=== PATIENT | male | born 1970 | race American Indian/Alaskan Native ===

== ENCOUNTER 2017-01-28 02:18 | Emergency (ER) | payer OTHER ==
[2017-01-28 02:18] VITALS: BMI 24.7
[2017-01-28 02:38] VITALS: TEMP 97.5
[2017-01-28] MEDS ORDERED: Sodium Chloride 0.9% 1,000 ML IV STA (02:43)
[2017-01-28 03:45] LABS: BASO # 0.1 K/uL (0.0-0.2); BASO % 0.8 % (0.0-2.0); EOS # 0.1 K/uL (0.0-0.7); EOS % 1.8 % (0.0-4.0); HEMATOCRIT 41.2 % (35.0-51.0); LYMPH # 3.5 K/uL (1.0-4.3); LYMPH % 56.2 % (20.0-40.0); MEAN CELL VOLUME 91.9 fl (80.0-94.0); MEAN CORPUSCULAR HEMOGLOBIN 31.4 pg (27.0-31.0); MEAN CORPUSCULAR HGB CONC 34.2 g/dL (33.0-37.0); MEAN PLATELET VOLUME 9.1 fl (7.2-11.7); MONO # 0.4 K/uL (0.0-0.8); MONO % 6.9 % (0.0-10.0); NEUT # 2.1 K/uL (1.8-7.0); NEUT % 34.3 % (50.0-75.0); NRBC % 0.2 % (0.0-0.0); RED CELL DISTRIBUTION WIDTH 13.8 % (11.5-14.5); WHITE BLOOD COUNT 6.3 K/uL (4.8-10.8)
[2017-01-28 03:54] LABS: ALB/GLOB RATIO 1.3 (1.0-2.1); ALCOHOL SERUM 197 mg/dl (0-10); ALKALINE PHOSPHATASE 40 U/L (38-126); ALT/SGPT 27 U/L (21-72); AST/SGOT 32 U/L (17-59); BILIRUBIN,TOTAL 0.5 mg/dl (0.2-1.3); BLOOD UREA NITROGEN 13 mg/dl (9-20); CALCIUM 9.4 mg/dL (8.4-10.2); CARBON DIOXIDE 20 mmol/L (22-30); CHLORIDE 109 mmol/L (98-107); GFR AFRICAN-AMERICAN > 60; GLUCOSE,RANDOM 103 mg/dL (75-110); POTASSIUM 3.8 MMOL/L (3.6-5.0); SODIUM 145 mmol/l (132-148)
[2017-01-28 04:58] VITALS: BP 104/62; PULSE 65; RESP 17
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
[2017-01-28 04:59] VITALS: O2SAT 98
--- NOTE | 2017-01-28 22:42 | CARD ---
APPROVED REPORT EKG Measurement Heart [id number] <Conclusion> Normal sinus rhythm Normal ECG
== END 2017-01-28 07:16 | disposition home or self-care (01) ==
LOC: H.ER 02:18
DX: F10.129 Alcohol abuse with intoxication, unspecified (principal); R11.2 Nausea with vomiting, unspecified; Z88.0 Allergy status to penicillin